=== PATIENT | female | born 1950 | race Caucasian/White ===

== ENCOUNTER 2021-01-11 07:55 | Outpatient (CLI) | payer OTHER | END 2021-01-11 08:33 | disposition home or self-care (01) | LOC: TOM 07:55 | PROVIDERS: ATTEND Urology | DX: Q61.02 Congenital multiple renal cysts (principal); N32.2 Vesical fistula, not elsewhere classified; N30.00 Acute cystitis without hematuria; K57.90 Diverticulosis of intestine, part unspecified, without perforation or abscess without bleeding ==